=== PATIENT | male | born 1960 | race Caucasian/White ===

== ENCOUNTER 2017-06-21 11:18 | Emergency (ER) | payer BC ==
[2016-05-24 07:36] VITALS: BMI 35.9
[~2017-06-21 11:18] MED LIST: BENADRYL25 MG PO; DEMEROL50 MG PO; SAW PALMETTO450 MG PO; SLOW-MAG 64 MG64 MG PO; SUDAFED 30 MG T30 MG PO
== END 2017-06-21 15:31 | disposition home or self-care (01) ==
LOC: D.ER 11:18
DX: T78.40XA Allergy, unspecified, initial encounter (principal); X58.XXXA Exposure to other specified factors, initial encounter; R06.00 Dyspnea, unspecified; R11.0 Nausea

== ENCOUNTER → 2019-03-12 09:49 | Outpatient (CLI) | payer BC ==
[2016-05-24 07:36] VITALS: BMI 35.9
== END | disposition home or self-care (01) ==
LOC: D.MRI 09:49
PROVIDERS: ATTEND Family Medicine
DX: M54.12 Radiculopathy, cervical region (principal)

== ENCOUNTER 2019-07-12 05:01 | Emergency (ER) | payer BC ==
[~2019-07-12] VITALS: Ht 182.9 cm; Wt 124.6 kg
[2019-07-12 05:04] VITALS: Ht 182.9 cm; Wt 124.6 kg
[2019-07-12] MEDS ORDERED: LIPITOR20 MG PO (05:06)
[2019-07-12] MEDS ORDERED: BAYER CHEWABLE81 MG PO (05:06)
[2019-07-12] MEDS ORDERED: BP PILL (05:07)
[2019-07-12 05:42] LABS: BASOPHILS 0.2 % (0-2); EOSINOPHILS 0.4 % (0-7); HEMATOCRIT 43.9 % (42.0-54.0); HEMOGLOBIN 15.6 g/dL (13.5-17.5); IMMATURE GRANULOCYTES 0.2 % (0-5); LYMPHOCYTES 7.6 % (15-50); MCH 31.8 pg (26.0-34.0); MCHC 35.5 g/dL (31.0-37.0); MCV 89.6 fL (80.0-100.0); MEAN PLATELET VOLUME 9.1 fL (7.4-10.4); MONOCYTES 5.5 % (2-11); NEUTROPHILS 86.1 % (40-80); PLATELET COUNT 262 10x3/uL (130-400); RDW 12.4 % (11.5-14.5); WBC 10.5 10x3/uL (4.8-10.8)
[2019-07-12 06:01] LABS: ALBUMIN 4.2 g/dL (3.4-5.0); ALKALINE PHOSPHATASE 91 U/L (46-116); ALT (SGPT) 50 U/L (10-68); BILIRUBIN - TOTAL 0.82 mg/dL (0.2-1.3); CALC OSMOLALITY 282 mosm/kg (275-300); CALCIUM 8.7 mg/dL (8.5-10.1); CHLORIDE - SERUM 106 mmol/L (98-107); CREATININE - SERUM 1.4 mg/dL (0.6-1.3); GLUCOSE 115 mg/dL (74-106); PROTEIN - SERUM 7.3 g/dL (6.4-8.2); SODIUM 141 mmol/L (136-145); UREA NITROGEN 16 mg/dL (7-18); eGFR NON AFRICAN AMERICAN 56 mL/min (90-120)
[2019-07-12 06:08] LABS: AMYLASE - SERUM 61 U/L (25-115); LIPASE 180 U/L (73-393)
[2019-07-12 06:15] LABS: TROPONIN-I < 0.017 ng/mL (0.000-0.060)
[2019-07-12 06:16] LABS: APPEARANCE HAZY (CLEAR); BILIRUBIN NEGATIVE (NEGATIVE); COLOR YELLOW (YELLOW); GLUCOSE NEGATIVE (NEGATIVE); KETONE NEGATIVE (NEGATIVE); NITRITE NEGATIVE (NEGATIVE); PROTEIN 1+ mg/dL (NEGATIVE); SPECIFIC GRAVITY 1.025 (1.005-1.020); UROBILINOGEN NORMAL (NORMAL)
[2019-07-12 06:17] LABS: BACTERIA FEW /hpf (NONE SEEN); EPITHELIAL CELLS 0-5 /hpf (0-5); MUCUS <1+ /lpf (NONE SEEN); WHITE CELLS - URINE 0-5 /hpf (0-5)
[2019-07-12] MEDS ORDERED: HYDROCODON-ACE1 EAC7 PO (06:54)
[2019-07-12] MEDS ORDERED: FLOMAX0.4 MG PO (06:54)
[2019-07-12 07:09] VITALS: BP 137/90
== END 2019-07-12 07:09 | disposition home or self-care (01) ==
LOC: D.ER 05:01
PROVIDERS: Family Medicine
DX: N20.1 Calculus of ureter (principal)

== ENCOUNTER 2019-08-22 19:40 | Observation (INO) | payer BC ==
[~2019-08-22] VITALS: Ht 182.9 cm; Wt 120.0 kg
[~2019-08-22 19:40] MED LIST changes: +BAYER CHEWABLE81 MG PO; +BP PILL; +FLOMAX0.4 MG PO; +HYDROCODON-ACE1 EAC7 PO; +LIPITOR20 MG PO
[2019-08-22 20:21] LABS: BASOPHILS 0.3 % (0-2); EOSINOPHILS 5.7 % (0-7); HEMATOCRIT 42.6 % (42.0-54.0); HEMOGLOBIN 14.6 g/dL (13.5-17.5); IMMATURE GRANULOCYTES 0.2 % (0-5); LYMPHOCYTES 26.7 % (15-50); MCH 31.9 pg (26.0-34.0); MCHC 34.3 g/dL (31.0-37.0); MCV 93.2 fL (80.0-100.0); MEAN PLATELET VOLUME 9.2 fL (7.4-10.4); MONOCYTES 10.7 % (2-11); NEUTROPHILS 56.4 % (40-80); PLATELET COUNT 262 10x3/uL (130-400); RBC 4.57 10x6/uL (4.20-6.10); RDW 12.5 % (11.5-14.5); WBC 6.2 10x3/uL (4.8-10.8)
[2019-08-22 20:31] LABS: INR 1.07 (0.85-1.17); PROTIME 13.4 SECONDS (11.6-15.0)
[2019-08-22 20:32] LABS: APTT 29.9 SECONDS (22.8-39.4)
[2019-08-22 20:41] LABS: ALBUMIN 3.7 g/dL (3.4-5.0); ALKALINE PHOSPHATASE 97 U/L (46-116); ALT (SGPT) 54 U/L (10-68); BILIRUBIN - TOTAL 0.43 mg/dL (0.2-1.3); CALC OSMOLALITY 281 mosm/kg (275-300); CALCIUM 8.1 mg/dL (8.5-10.1); CARBON DIOXIDE 32.2 mmol/L (21.0-32.0); CHLORIDE - SERUM 106 mmol/L (98-107); CREATININE - SERUM 1.3 mg/dL (0.6-1.3); GLUCOSE 88 mg/dL (74-106); PROTEIN - SERUM 6.8 g/dL (6.4-8.2); SODIUM 142 mmol/L (136-145); UREA NITROGEN 13 mg/dL (7-18); eGFR NON AFRICAN AMERICAN 61 mL/min (90-120)
[2019-08-22 20:53] LABS: PRO BNP 18 pg/mL (0-125); THYROID STIMULATING HORMONE 1.07 uIU/mL (0.36-3.74); TROPONIN-I < 0.017 ng/mL (0.000-0.060)
--- NOTE | 2019-08-23 | NUR ---
INFORMED NO TELEMETRY MONITORS AVAILABLE.
--- NOTE | 2019-08-23 00:10 | NUR ---
RECIEVED TO FLOOR ACCOMPANIED BY HOSPITAL STAFF. AMBULATORY AD [place]. DENIES WEAKNESS OR TINGLING, STATES HIS EXTREMETIES FEEL HEAVY THOUGH. REPORTS HISTORY OF A STROKE IN OCTOBER OF 2018. ALSO REPORTS RECENT DIAGNOSIS OF KIDNEY STONES. 1 OF 2 HAS BEEN PASSED. DENIES FURTHER NEEDS, WILL CONTINUE TO MONITOR.
[2019-08-23] MEDS ORDERED: CETIRIZINE HCL5 M1 PO (00:24)
[2019-08-23 00:59] VITALS: BP 128/85; Ht 182.9 cm; Wt 120.0 kg
[2019-08-23 03:10] LABS: BASOPHILS 0.3 % (0-2); EOSINOPHILS 5.1 % (0-7); HEMATOCRIT 41.1 % (42.0-54.0); HEMOGLOBIN 14.1 g/dL (13.5-17.5); IMMATURE GRANULOCYTES 0.2 % (0-5); LYMPHOCYTES 31.4 % (15-50); MCH 31.9 pg (26.0-34.0); MCHC 34.3 g/dL (31.0-37.0); MEAN PLATELET VOLUME 9.1 fL (7.4-10.4); MONOCYTES 8.7 % (2-11); NEUTROPHILS 54.3 % (40-80); PLATELET COUNT 250 10x3/uL (130-400); RBC 4.42 10x6/uL (4.20-6.10); RDW 12.4 % (11.5-14.5); WBC 6.4 10x3/uL (4.8-10.8)
[2019-08-23 03:22] LABS: CALC OSMOLALITY 283 mosm/kg (275-300); CALCIUM 8.8 mg/dL (8.5-10.1); CARBON DIOXIDE 28.1 mmol/L (21.0-32.0); CHLORIDE - SERUM 105 mmol/L (98-107); CKMB 2.9 U/L (0.0-3.6); CREATINE KINASE 140 UL (21-232); CREATININE - SERUM 1.1 mg/dL (0.6-1.3); GLUCOSE 92 mg/dL (74-106); MAGNESIUM - SERUM 1.9 mg/dL (1.8-2.4); PHOSPHOROUS 4.1 mg/dL (2.5-4.9); POTASSIUM - SERUM 3.8 mmol/L (3.5-5.1); SODIUM 142 mmol/L (136-145); TROPONIN-I < 0.017 ng/mL (0.000-0.060); UREA NITROGEN 14 mg/dL (7-18); eGFR NON AFRICAN AMERICAN 73 mL/min (90-120)
[2019-08-23 04:00] VITALS: BP 121/76
--- NOTE | 2019-08-23 04:24 | NUR ---
I have reviewed this patient and I concur with the Shift Assessment completed by the Licensed Practical Nurse today this shift.
[2019-08-23 09:48] VITALS: BP 110/74
[2019-08-23] MEDS ORDERED: BAYER CHEWABLE81 MG PO (10:00)
[2019-08-23] MEDS ORDERED: ZYRTEC10 MG PO (10:00)
[2019-08-23] MEDS ORDERED: BENICAR20 MG PO (10:01)
[2019-08-23] MEDS ORDERED: ACETAMINOPHEN500 M1 PO (10:03)
--- NOTE | 2019-08-23 10:06 | NUR ---
MEDS AND PHARMACY REVIEWED. CL IN REACH. PATIENT LAYING ON RIGHT SIDE. NO FURTHER NEEDS AT THIS TIME. WCTM
[2019-08-23 10:07] LABS: CKMB 2.5 U/L (0.0-3.6); CREATINE KINASE 144 UL (21-232); TROPONIN-I < 0.017 ng/mL (0.000-0.060)
[2019-08-23 12:29] VITALS: BP 124/76
[2019-08-23 13:21] LABS: CKMB 2.3 U/L (0.0-3.6); CREATINE KINASE 117 UL (21-232); TROPONIN-I 0.018 ng/mL (0.000-0.060)
--- NOTE | 2019-08-23 14:51 | NUR ---
URINE SAMPLE RECEIVED AND SENT TO LAB PER ORDER. CL IN REACH. PATIENT SAYS HE IS HAPPY HE FINALLY GOT REAL FOOD. WCTM
[2019-08-23 15:02] LABS: APPEARANCE CLEAR (CLEAR); BILIRUBIN NEGATIVE (NEGATIVE); COLOR YELLOW (YELLOW); GLUCOSE NEGATIVE (NEGATIVE); KETONE NEGATIVE (NEGATIVE); NITRITE NEGATIVE (NEGATIVE); PROTEIN NEGATIVE (NEGATIVE); SPECIFIC GRAVITY 1.015 (1.005-1.020); UROBILINOGEN NORMAL (NORMAL)
[2019-08-23 15:03] LABS: BACTERIA FEW /hpf (NEGATIVE); EPITHELIAL CELLS 0-5 /hpf (0-5); MUCUS <1+ /lpf (NONE SEEN); WHITE CELLS - URINE OCC /hpf (NEGATIVE)
[2019-08-23 16:23] VITALS: BP 108/70
[2019-08-23 20:00] VITALS: BP 111/73
--- NOTE | 2019-08-23 22:16 | NUR ---
A&O X 4, DENIES PAIN/DISCOMFORT. HAS BEEN AMBULATIONG INDEPENDENTLY AROUND UNIT. STATES HE WAS TOLD TO BE NPO AFTER MIDNIGHT. TELEMETRY APPLIED: 80SR. DENIES NEEDS AT THIS TIME, WILL CONTINUE TO MONITOR.
--- NOTE | 2019-08-24 02:44 | NUR ---
I have reviewed this patient and I concur with the Shift Assessment completed by the Licensed Practical Nurse today this shift.
[2019-08-24 04:00] VITALS: BP 108/73
[2019-08-24 05:47] LABS: BASOPHILS 0.3 % (0-2); EOSINOPHILS 5.6 % (0-7); HEMATOCRIT 41.6 % (42.0-54.0); IMMATURE GRANULOCYTES 0.2 % (0-5); MCH 31.3 pg (26.0-34.0); MCHC 33.7 g/dL (31.0-37.0); MCV 93.1 fL (80.0-100.0); MEAN PLATELET VOLUME 9.6 fL (7.4-10.4); MONOCYTES 10.8 % (2-11); NEUTROPHILS 56.1 % (40-80); PLATELET COUNT 257 10x3/uL (130-400); RBC 4.47 10x6/uL (4.20-6.10); RDW 12.5 % (11.5-14.5); WBC 5.9 10x3/uL (4.8-10.8)
[2019-08-24 06:37] LABS: ANION GAP 7.9 mmol/L (8-16); CALCIUM 8.1 mg/dL (8.5-10.1); CARBON DIOXIDE 29.8 mmol/L (21.0-32.0); CHOL - HDL RATIO 2.7 ratio (2.3-4.9); CREATININE - SERUM 1.1 mg/dL (0.6-1.3); LDL-HDL RATIO 1.2 ratio (1.5-3.5); MAGNESIUM - SERUM 1.9 mg/dL (1.8-2.4); POTASSIUM - SERUM 3.7 mmol/L (3.5-5.1)
[2019-08-24 06:54] LABS: PHOSPHOROUS 2.9 mg/dL (2.5-4.9)
[2019-08-24 08:35] VITALS: BP 108/72
--- NOTE | 2019-08-24 10:22 | NUR ---
PATIENT CONCERNED ABOUT RIGHT HAND SWELLING. SAYS HE HAS A EARACHE. HOT PACK AND TYLENOL PROVIDED. RIGHT HAND AND FOREARM TINGLING AND NUMB. WRIST BAND CUT FROM BEING TO TIGHT. NEW WRIST BAND PROVIDED. GETTING ANOTHER SET OF VITALS NOW.
--- NOTE | 2019-08-24 10:36 | NUR ---
CALLED [facility] ABOUT PATIENTS SYMPTOMS
[2019-08-24] MEDS ORDERED: ASPIRIN325 MG PO (12:22)
[2019-08-24 13:14] VITALS: BP 122/78
--- NOTE | 2019-08-24 13:29 | EC ---
PATIENT:BETH LOMBARDI DATE OF SERVICE: 08/22/19 SEX: M MEDICAL RECORD: [id number] DATE OF : 64 LOCATION:D.MS [address] AGE OF PATIENT: 58 ADMISSION DATE: 08/22/19 REFERRING PHYSICIAN: INTERPRETING PHYSICIAN: MICHELL STEPHEN MD ECHOCARDIOGRAM REPORT ECHO CHARGES 4 ECHO COMPLETE Date: 08/23/19 CLINICAL DIAGNOSIS: TIA VS. CVA ASSESS FOR CLOTS/EF ECHOCARDIOGRAPHIC MEASUREMENTS (adult normal given) AC root (d.<3.7cm) 3.9 cm LV Septum d (<1.2 cm> 1.4 cm Valve Excursion 1.5 cm LV Septum (systole) 1.6 cm Left Atria (s.<4.0cm> 3.9 cm LVPW d(<1.2cm) 1.6 cm RV (d.<2.3cm) 4.5 cm LVPW (sytole) 1.8 cm LV diastole(<5.6CM) 5.9 cm MV E-F(>70mm/sec) cm LV systole 4.1 cm LVOT Diameter 2.5 cm MV exc.(>10mm) cm Est.ejection fraction (50-75%) % DOPPLER: LVIT cm/sec A 42.0 cm/sec E 52.0 cm/sec LA cm/sec RVSP 16 mmHg LVOT 70 cm/sec AOP1/2T m/s Asc. Ao 108 cm/sec RVOT 75 cm/sec RA cm/sec PA 84 cm/sec AV Gradient Peak 4.64 mmHg AV Mean 2.50 mmHg AV Area 2.7 cm MV Gradient Peak 3.23 mmHg MV Mean 1.02 mmHg MV Area cm COMMENTS: Matzo Forming Machine Operator: Yolanda STEIN Coverstitch Elastic Attacher: 1 Dr. Stephen TAPE# PACS Pericardial Effusion N DATE OF SERVICE: Echocardiogram FINDINGS: 1. Left ventricular chamber size is within normal limits. Left ventricular systolic function is normal. Overall ejection fraction estimated at 55%. 2. Left atrium is within normal limits at 3.9 cm. Right atrium and right ventricular chamber sizes are mildly dilated. 3. Valvular structures have normal structure and motion. ECHOCARDIOGRAM REPORT [id number] BETH LOMBARDI 4. Doppler interrogation reveals no significant valvular insufficiency or stenosis. Pulmonary systolic pressure is normal estimated 16 mmHg. 5. No cardiac source of neurologic emboli. TRANSINT:[id number] Voice Confirmation ID: [id number] DOCUMENT ID: [id number] MICHELL STEPHEN MD at 1329 CC: [id number] DICTATION DATE: 08/23/19 1508 STATISTICAL CONSULTANT: 08/23/19 2238 ADM IN [place] [id number] [place] [id number]
[2019-08-24 16:31] VITALS: BP 101/64
--- NOTE | 2019-08-24 16:53 | MORECARE ---
CASE MANAGEMENT DISCHARGE SUMMARY PATIENT: BETH LOMBARDI UNIT: [id number] ADM DATE: 08/22/19 AGE: 58 : 64 SEX: M ROOM/BED: D.2208 AUTHOR: MELANY MOROCHO PHYSICIAN: REFERRING PHYSICIAN: TROY ERWIN MD DATE OF SERVICE: 08/24/19 Discharge Plan Patient Name: BETH LOMBARDI Facility: [facility]:[place] : 1960 Planned Disposition: Home Anticipated Discharge Date: Discharge Date: Expected LOS: Initial Reviewer: [email or web address] Initial Review Date: 08/22/2019 Generated: 08/24/19 5:53 pm Comments DCP- Discharge Planning Updated by [email or web address]: Lorie Meza on 08/24/19 3:[address] PATIENT IS BEING DISCHARGED HOME TODAY, HE IS INDEPENDNET WITH HIS CARE AND PLANS ON GOING TO WORK ON TUESDAY. 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 HE DENIES ANY NEEDS AT THIS TIME External Providers External Provider: OTHER-OTHER Next Contact Date: Service Request Date: Service Type: Resolution: Reviewer: Comments: Patient Name: EBTH LOMBARDI Page [id number] at 1653 All edits/amendments must be made on the electronic document DICTATION DATE: 08/24/191652 RUBBER BALL FINISHER: ROBBIE 08/24/191652 RPT#: [id number] DC DATE: STATUS: ADM IN [facility] [address] [place] [address] END OF REPORT
--- NOTE | 2019-08-24 17:24 | NUR ---
PATIENT IV THERAPY DC'ED FROM RIGHT AC WITH TIP INTACT. DISCHARGE INSTRUCTIONS GIVEN. PATIENT AND VERBALIZED UNDERSTANDING. REFUSED WHEELCHAIR DOWN.
--- NOTE | 2019-08-27 14:52 | MORECARE ---
CASE MANAGEMENT DISCHARGE SUMMARY PATIENT: BETH LOMBARDI UNIT: [id number] ADM DATE: 08/22/19 AGE: 58 : 64 SEX: M ROOM/BED: D.2208 AUTHOR: MELANY MOROCHO PHYSICIAN: REFERRING PHYSICIAN: TROY ERWIN MD DATE OF SERVICE: 08/27/19 Discharge Plan Patient Name: BETH LOMBARDI Facility: [facility]:[place] : 1960 Planned Disposition: Home Anticipated Discharge Date: Discharge Date: 08/24/2019 Expected LOS: Initial Reviewer: [email or web address] Initial Review Date: 08/22/2019 Generated: 08/27/19 3:51 pm Comments DCP- Discharge Planning Updated by [email or web address]: Lorie Meza on 08/24/19 3:[address] PATIENT IS BEING DISCHARGED HOME TODAY, HE IS INDEPENDNET WITH HIS CARE AND PLANS ON GOING TO WORK ON TUESDAY. 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 HE DENIES ANY NEEDS AT THIS TIME Last DP export: 08/24/19 3:53 Patient Name: BETH LOMBARDI Page [phone] at 1452 All edits/amendments must be made on the electronic document DICTATION DATE: 08/27/191450 FELT HAT POUNCING OPERATOR HAND: ROBBIE 08/27/191450 RPT#: [id number] DC DATE:08/24/19 STATUS: DIS IN [facility] [address] [place] [address] END OF REPORT
== END 2019-08-24 17:26 | disposition home or self-care (01) ==
LOC: D.ER 19:40 → D.MS 21:03 → OBSVTIME 21:03 → D.MS 21:03
PROVIDERS: Family Medicine; ADMIT Family Medicine; ATTEND Family Medicine
DX: R20.2 Paresthesia of skin (principal); K21.9 Gastro-esophageal reflux disease without esophagitis; E78.5 Hyperlipidemia, unspecified; I10 Essential (primary) hypertension; Z86.73 Personal history of transient ischemic attack (TIA), and cerebral infarction without residual deficits

== ENCOUNTER 2020-08-14 05:25 | Day surgery (SDC) | payer BC ==
[~2020-08-14] VITALS: Ht 172.7 cm; Wt 117.0 kg
[~2020-08-14 05:25] MED LIST changes: +ACETAMINOPHEN500 M1 PO; +ASPIRIN325 MG PO; +BENICAR20 MG PO; +CETIRIZINE HCL5 M1 PO; +ZYRTEC10 MG PO
[2020-08-14 05:50] LABS: BASOPHILS 0.4 % (0-2); EOSINOPHILS 5.9 % (0-7); HEMATOCRIT 42.7 % (42.0-54.0); LYMPHOCYTES 25.4 % (15-50); MCH 30.6 pg (26.0-34.0); MCHC 32.8 g/dL (31.0-37.0); MCV 93.4 fL (80.0-100.0); MEAN PLATELET VOLUME 9.1 fL (7.4-10.4); MONOCYTES 9.8 % (2-11); NEUTROPHILS 58.5 % (40-80); PLATELET COUNT 273 10x3/uL (130-400); RBC 4.57 10x6/uL (4.20-6.10); RDW 12.6 % (11.5-14.5); WBC 5.4 10x3/uL (4.8-10.8)
[2020-08-14 06:10] LABS: ANION GAP 8.8 mmol/L (8-16); CALCIUM 8.8 mg/dL (8.5-10.1); CARBON DIOXIDE 30.5 mmol/L (21.0-32.0); CREATININE - SERUM 1.3 mg/dL (0.6-1.3); POTASSIUM - SERUM 4.3 mmol/L (3.5-5.1)
[2020-08-14 07:54] VITALS: BP 105/77; Ht 172.7 cm; Wt 117.0 kg
[2020-08-14] MEDS ORDERED: MEPERIDINE HCL50 MG PO (10:08)
--- NOTE | 2020-08-14 13:46 | OP ---
PATIENT NAME: BETH LOMBARDI MEDICAL RECORD: [id number] :64 LOCATION:D.OPS ADMISSION DATE: SURGEON: SERGIO PINEDA MD DATE OF OPERATION: 08/14/2020 PREOPERATIVE DIAGNOSES: 1. Current recurrent ventral incisional hernia. 2. Umbilical hernia. 3. Left upper quadrant lipoma times 2. 4. Hypertension. 5. Gastroesophageal reflux disease. 6. Sarcoidosis. POSTOPERATIVE DIAGNOSES: 1. Current recurrent ventral incisional hernia. 2. Umbilical hernia. 3. Left upper quadrant lipoma times 2. 4. Hypertension. 5. Gastroesophageal reflux disease. 6. Sarcoidosis. PROCEDURES: 1. Recurrent ventral incisional hernia repair with 11.[address] mesh. 2. Umbilical hernia repair with 4.[address] mesh. 3. Excision of 1 cm left upper quadrant lipomas times 2. SURGEON: Sergio Pineda MD REPORT OF PROCEDURE: The patient's abdomen was prepped and draped in sterile fashion. The patient had 2 lipomas that were on the left upper quadrant of the abdomen laterally overlying the rib cage. Approximately 1.5 cm transverse incisions were made overlying these 2 masses and 2 fatty lipomatous masses were removed and sent off for permanent specimen. We treated the area with electrocautery to stop any bleeding. The wounds were infused with 10 mL of 0.25% Marcaine with epinephrine and then closed with subcutaneous 5-0 Monocryl. A skin incision was then made in the midline through an old incision. This scar was opened up and we used electrocautery to come through the subcutaneous tissues until we encountered the hernia sac. This hernia sac was penetrated and we were able to take down some fatty adhesions off the anterior abdominal wall. Upon performing this, we can feel the anterior abdominal wall and there was a piece of mesh that was present, but it appeared to come detached from the left upper portion of the hernia defect. The remainder of the mesh appeared to be in good position. We were able to free up the hernia sac and take down the hernia sac to the fascial edges. The fatty tissue overlying the fascia anteriorly was undermined using electrocautery. At this point, we can measure out the defect and it was about 5 cm in greatest diameter and the defect appeared to be circular and little to the left of midline in the epigastric region. An 11.[address] mesh was inserted in an underlay fashion. This was sutured into place with interrupted 0 Prolenes times 8. There was good approximation of the tissues to the anterior abdominal wall. We irrigated out the wound and assured there was no sign of any bleeding. The fascia was then closed longitudinally overlying the mesh incorporating bites of the mesh using a running 0 Vicryl. The wound was inspected one last time to assure there was no sign of any bleeding, which there was none. The subcutaneous tissues were reapproximated with interrupted 3-0 Vicryl and then infused with 10 mL of 0.25% Marcaine with OPERATIVE REPORT [id number] BETH LOMBARDI epinephrine. The skin incision was closed with osmar. We then made a semicircular incision on the inferior aspect of the umbilicus. Electrocautery was used to dissect through the subcutaneous tissues and we encountered a small hernia sac at the base of the umbilicus. There was some scar tissue present around this and any of the overlying fatty tissue and scar tissue over the fascia was undermined in order for us to see the effect hernia defect more clearly. We cleared off any of the underlying tissue from the fascia and measured out the hernia defect at 2.3 cm. A 4.[address] mesh was inserted in an underlay fashion and sutured down on all 4 sides using interrupted 0 Prolenes. The fascia was then closed transversely overlying the mesh using a running 0 Vicryl. The umbilicus was tacked down to the fascia with a single interrupted 3-0 Vicryl and the subcutaneous tissues were reapproximated with interrupted 3-0 Vicryl. A 10 mL of 0.25% Marcaine plain were infused into the surrounding tissues. The skin incision was then closed with running subcutaneous 5-0 Monocryl. All the wounds were then dressed appropriately. COMPLICATIONS: None. CONDITION: Stable. ANESTHESIA: General endotracheal and local. BLOOD LOSS: 30 mL. TRANSINT:[id number] Voice Confirmation ID: [id number] DOCUMENT ID: [id number] SERGIO PINEDA MD at 1346 CC: RADHA JEAN MD [id number] DICTATION DATE: 08/14/20 1015 TELEVISION AND RADIO REPAIRER: 08/14/20 1152 [facility] [address] [place] [address]
--- NOTE | 2020-08-14 14:21 | NUR ---
1420 BLADDER SCAN DONE AND 168ML TO BLADDER. BLADDER SOFT TO PALPATE
--- NOTE | 2020-08-14 18:05 | NUR ---
1055 ARRIVED TO ROOM AND ABDOMEN LARGE AND SPOT OF DRAINAGE ON DRESSING. TOLERAING ICE WATER. AT BEDSIDE. VS STABLE DEINES PAIN AT THIS TIME. 1155 ABDOMINAL BINDER ON 3RD BAG OF IV FLUIDS INFUSING. 1215 INSTRUCTIONS GIVEN. 1540 VOIDED AFTER SEVERAL ATTEMPS APPRO 125 ML CLEAR YELLOW URINE. 1545 IV REMOVED AND DRESSING NOTED WITH MODERATE TO LARGE AMT ON UPPER DRESSING, DR PINEDA ON UNIT TO INSTRUCT ON REINFORCING DRESSING. RECEIVED A NEW BINDER DUE TO MODERATE AMT NOTED ON BINDER. RECIEVED SOILED BINDER TO WASH AT HOME PER REQUEST.
== END 2020-08-14 16:00 | disposition home or self-care (01) ==
LOC: D.OPS 05:25 → D.PAN 08:00 → D.OPS 08:00
PROVIDERS: ATTEND Surgery
DX: K43.2 Incisional hernia without obstruction or gangrene (principal); K42.9 Umbilical hernia without obstruction or gangrene; D17.9 Benign lipomatous neoplasm, unspecified; I10 Essential (primary) hypertension; K21.9 Gastro-esophageal reflux disease without esophagitis; D86.9 Sarcoidosis, unspecified

== ENCOUNTER 2021-05-06 11:32 | Emergency (ER) | payer BC ==
[~2021-05-06] VITALS: Ht 172.7 cm; Wt 130.9 kg
[~2021-05-06 11:32] MED LIST changes: +MEPERIDINE HCL50 MG PO
[2021-05-06 11:56] VITALS: BP 123/83; Ht 172.7 cm; Wt 130.9 kg
[2021-05-06] MEDS ORDERED: TORADOL10 MG PO (14:14)
== END 2021-05-06 14:52 | disposition home or self-care (01) ==
LOC: D.ER 11:32
DX: S01.81XA Laceration without foreign body of other part of head, initial encounter (principal); W18.40XA Slipping, tripping and stumbling without falling, unspecified, initial encounter